=== PATIENT | female | born 1940 | race Caucasian/White ===

== ENCOUNTER → 2023-11-08 12:41 | Outpatient (REF) | payer OTHER, SELFPAY | LOC: RAD 12:41 | PROVIDERS: ATTENDING PHYSICIAN Family Medicine | DX: M81.0 Age-related osteoporosis without current pathological fracture (principal) | CPT/HCPCS: 77080 ==

== ENCOUNTER → 2023-11-14 12:55 | Outpatient (REF) | payer OTHER, SELFPAY | LOC: WDC 12:55 | PROVIDERS: ATTENDING PHYSICIAN Family Medicine | DX: Z12.31 Encounter for screening mammogram for malignant neoplasm of breast (principal) | CPT/HCPCS: 77063; 77067 ==

== ENCOUNTER → 2024-05-29 13:41 | Outpatient (REF) | payer OTHER, SELFPAY | LOC: WDC 13:41 | PROVIDERS: ATTENDING PHYSICIAN Family Medicine | DX: R92.343 Mammographic extreme density, bilateral breasts (principal) | CPT/HCPCS: 76641 ==

== ENCOUNTER → 2024-11-17 14:04 | Outpatient (REF) | payer OTHER, SELFPAY | LOC: RAD 14:04 | PROVIDERS: ATTENDING PHYSICIAN Family Medicine | DX: M81.0 Age-related osteoporosis without current pathological fracture (principal) | CPT/HCPCS: 72072; 72100 ==

== ENCOUNTER → 2024-11-20 13:48 | Outpatient (REF) | payer OTHER, SELFPAY | LOC: WDC 13:48 | PROVIDERS: ATTENDING PHYSICIAN Family Medicine | DX: Z12.31 Encounter for screening mammogram for malignant neoplasm of breast (principal) | CPT/HCPCS: 77063; 77067 ==

== ENCOUNTER → 2025-07-08 14:47 | Outpatient (REF) | payer OTHER, SELFPAY | LOC: WDC 14:47 | PROVIDERS: ATTENDING PHYSICIAN Family Medicine | DX: R92.2 Inconclusive mammogram (principal); R92.343 Mammographic extreme density, bilateral breasts | CPT/HCPCS: 76641 ==